=== PATIENT | female | born 1940 | race Caucasian/White ===

== ENCOUNTER 2019-05-30 18:45 | Inpatient (IN) | payer MEDICARE, OTHER ==
[~2019-05-30] VITALS: Ht 167.6 cm; Wt 78.7 kg
--- NOTE | 2019-05-30 20:05 | NUR ---
Dr. Martinez at bedside for MSE.
[2019-05-30] MEDS ORDERED: IV NORMAL SALINE 1000 ML BAG IV ONE (20:15)
--- NOTE | 2019-05-30 20:23 | NUR ---
Xray at bedside.
[2019-05-30 20:24] LABS: BASOPHILS % (AUTO) 0.2 % (0.0-2.0); HEMATOCRIT 37.5 % (31.2-41.9); HEMOGLOBIN 12.2 g/dL (10.9-14.3); LYMPHOCYTES # (AUTO) 0.5 K/uL (20.0-40.0); LYMPHOCYTES % (AUTO) 4.2 % (20.5-51.5); MEAN CORPUSCULAR HEMOGLOBIN 28.6 uug (24.7-32.8); MEAN CORPUSCULAR HGB CONC 33 g/dL (32.3-35.6); MEAN CORPUSCULAR VOLUME 88.1 fL (75.5-95.3); MONOCYTES # (AUTO) 0.6 K/uL (2.0-10.0); MONOCYTES % (AUTO) 5.3 % (0.0-11.0); NEUTROPHILS # (AUTO) 11.1 K/uL (1.8-8.9); NEUTROPHILS % (AUTO) 90.3 % (38.5-71.5); PLATELET COUNT (AUTO) 189 K/uL (179-408); RED BLOOD CELL COUNT(AUTO) 4.26 MIL/uL (3.63-4.92); WHITE BLOOD COUNT (AUTO) 12.3 K/uL (3.8-11.8)
[2019-05-30 20:33] LABS: POTASSIUM 3.6 mmol/L (3.5-5.1)
--- NOTE | 2019-05-30 20:35 | NUR ---
Inserted malhotra catheter, pt tolerated procedure well, urine sample sent to lab.
[2019-05-30 20:38] LABS: BILIRUBIN,DIRECT 0.2 mg/dL (0.0-0.2); BILIRUBIN,TOTAL 0.4 mg/dL (0.2-1.0); TOTAL PROTEIN, SERUM 7.1 g/dL (6.4-8.2)
[2019-05-30 20:48] LABS: *BILIRUBIN,URIN NEGATIVE (NEGATIVE); *BLOOD, URINE 2+ (NEGATIVE); *CLARITY,URINE CLOUDY (CLEAR); *COLOR,URINE YELLOW (YELLOW); *KETONES,URINE NEGATIVE (NEGATIVE); *UROBILINOGEN,URINE 0.2 E.U./dl (NORMAL); LEUKOCYTE ESTERASE ,URINE NEGATIVE (NEGATIVE); NITRITE, URINE NEGATIVE (NEGATIVE); UGLUCOSE NEGATIVE (NEGATIVE)
[2019-05-30 20:51] LABS: BACTERIA,URINE 3+ /HPF (NONE SEEN); WBC,URINE 0-3 /HPF (0-3)
[2019-05-30] MEDS ORDERED: ACETAMINOPHEN 650 MG SUPP.RECT RC ONE ×2 (20:57→21:00)
[2019-05-30] MEDS ORDERED: CEFTRIAXONE 1 G in IV DEXTROSE 5% 50 ML IV ONE (21:15)
[2019-05-30] MEDS ORDERED: CEFTRIAXONE 1 G VIAL ONE (21:16)
--- NOTE | 2019-05-30 21:20 | NUR ---
Called [facility] to page Dr. Zeng.
--- NOTE | 2019-05-30 21:24 | NUR ---
Dr. Martinez on panel call with Dr. Zeng. Patient accepted for admission to [facility], diagnosis: CHF, UTI, and fever.
--- NOTE | 2019-05-30 21:27 | NUR ---
called Cira Patricio, santino w/ Henrietta Banks RN, and confirmed pt's code status - DNR. LISA is in the pt's transfer care chart.
[2019-05-30] MEDS ORDERED: IV NS 1000 ML 1,000 ML IV PRN (21:35)
--- NOTE | 2019-05-30 21:37 | NUR ---
Spoke with Pt's daughter, Shelly, , confirmed patient's DNR/DNI status.
--- NOTE | 2019-05-30 21:42 | NUR ---
Report given to [facility] Tele.
[2019-05-30] MEDS ORDERED: ACETAMINOPHEN 325 MG TABLET PO PRN (21:45)
[2019-05-30] MEDS ORDERED: INSULIN REGULAR, HUMAN 300 UNITS/3 ML VIAL SQ PRN (21:45)
[2019-05-30] MEDS ORDERED: HYDROCODONE/APAP 5-325MG TABLET PO PRN (21:45)
[2019-05-30] MEDS ORDERED: DEXTROSE 50% 50 ML DISP.SYRIN IV PRN (21:45)
[2019-05-30] MEDS ORDERED: MAGNESIUM HYDROXIDE 30 ML LIQUID UDC PO PRN (21:45)
[2019-05-30] MEDS ORDERED: Z GUARD REMEDY PASTE 57 GM TUBE TOP PRN (21:45)
[2019-05-30] MEDS ORDERED: ONDANSETRON 4 MG/2 ML VIAL IV PRN (21:45)
[2019-05-30] MEDS ORDERED: ATORVASTATIN 40 MG TABLET PO SCH (21:58)
[2019-05-30] MEDS ORDERED: MAGNESIUM HYDROXIDE 30 ML LIQUID UDC PO SCH (22:02)
[2019-05-30] MEDS ORDERED: PIPERACILLIN/TAZOBACTAM/D5W 50 ML IV ONE (22:30)
[2019-05-30 22:45] VITALS: BP 134/41
[2019-05-30] MEDS: BLOOD SUGAR DIAGNOSTIC 1 EACH STRIP VI SCH (23:01)
[2019-05-30] MEDS ORDERED: PIPERACILLIN SODIUM/TAZO 3.375 GM VIAL ONE (23:04)
[2019-05-30] MEDS: OLANZAPINE 2.5 MG TABLET PO SCH (23:20)
[2019-05-30] MEDS: LOSARTAN POTASSIUM 50 MG TABLET PO SCH (23:20)
[2019-05-30] MEDS: ASPIRIN 81 MG TAB.CHEW PO SCH (23:24)
[2019-05-31] MEDS ORDERED: PIPERACILLIN SODIUM/TAZOBACTAM 3.375 G in IV DEXTROSE 5% 50 ML IV SCH ×2
--- NOTE | 2019-05-31 | NUR ---
Patient arrived on the floor at 2205, accompanied by ER nurse. In sleepy/drowsy state, able to make mumbling noises as responses, but unable to participate in a full conversation. Responds to verbal, tactile and painful stimuli. Pt transferred from [facility] to bed, assisted by 2 NET PROGRAMMER ANALYST's. Placed on tele, Normal sinus rhythm at this time, 60-77 HR. Still slightly warm to touch, with fever as documented. Cooling measures provided. Rest of VS within normal limits. Bedside swallow eval done, patient able to tolerate table spoons of apple sauce. Opens eyes and swallows without coughing. Skin check done, multiple skin issues noted including: (1) multiple discoloration, bruises and closed ecchymosis on bilateral upper extremities; (2) Redness with some breaks in skin, congruent to moisture associated skin damage on buttocks and perineal area; (3) Redness on entire R lower leg; (4) Redness on the bony prominences of both R and L foot. Good perineal care provided. Patient with 2 BM (1 in ER and at this time). Placed on comfortable position with R side of body offloaded. Bilateral heels and foot also offloaded. Held off on the DVT pumps due to redness on R lower extremity. All patient's belongings accounted for, NET PROGRAMMER ANALYST and RN signed, patient unable to sign. Carried out all admission orders, clarified IV fluids secondary to patient's CHF MD KUSH stock'ed initial order. IV ATB continued, started on L FA currently running at 50cc/hr. All oral medications crushed and mixed with apple sauce, tolerated well. Head kept elevated. Aspiration precautions maintained. BS checked: 163, due insulin of 3 units given subcutaneously. Cooling measures still kept in place. Bed locked in place. Side rails up x 3. Bed alarm on. Pt sleeping now. Needs attended. Will continue to monitor patient.
[2019-05-31 01:12] VITALS: BP 144/41
--- NOTE | 2019-05-31 01:51 | NUR ---
TEMP STILL ELEVATED AT 101.9. TYLENOL 650 MG GIVEN PO. TOELRATED WELL. ICE PACKS PLACED UNDERARMS, AND COLD TOWEL PLACED ON FOREHEAD. WILL CONTINUE COOLING MEASURES. PT IS MORE AWAKE NOW, BUT NOTED WITH RESTLESSNESS.
--- NOTE | 2019-05-31 03:30 | NUR ---
Dr Wilkes contacted regarding patient's continued fever, and now increased restlessness. Unable to console or redirect. Received new order for 1x Ativan 1mg PO received, will administer. Will continue to monitor.
[2019-05-31] MEDS ORDERED: LORAZEPAM 1 MG TABLET PO ONE (03:45)
[2019-05-31 04:00] VITALS: BP 127/33
[2019-05-31] MEDS ORDERED: PIPERACILLIN/TAZOBACTAM/D5W 50 ML IV ONE (06:00)
[2019-05-31 06:18] LABS: BASOPHILS % (AUTO) 0.2 % (0.0-2.0); HEMOGLOBIN 10.5 g/dL (10.9-14.3); LYMPHOCYTES # (AUTO) 1.2 K/uL (20.0-40.0); LYMPHOCYTES % (AUTO) 9.4 % (20.5-51.5); MEAN CORPUSCULAR HEMOGLOBIN 28.6 uug (24.7-32.8); MEAN CORPUSCULAR HGB CONC 33 g/dL (32.3-35.6); MEAN CORPUSCULAR VOLUME 87.4 fL (75.5-95.3); MONOCYTES # (AUTO) 0.6 K/uL (2.0-10.0); MONOCYTES % (AUTO) 4.8 % (0.0-11.0); NEUTROPHILS # (AUTO) 11.2 K/uL (1.8-8.9); NEUTROPHILS % (AUTO) 85.6 % (38.5-71.5); PLATELET COUNT (AUTO) 183 K/uL (179-408); RED BLOOD CELL COUNT(AUTO) 3.66 MIL/uL (3.63-4.92)
[2019-05-31 06:31] LABS: CREATININE 1.1 mg/dL (0.6-1.3); MAGNESIUM 1.6 mg/dL (1.8-2.4); PHOSPHOROUS 3.2 mg/dL (2.5-4.9); POTASSIUM 3.4 mmol/L (3.5-5.1)
--- NOTE | 2019-05-31 06:34 | NUR ---
Patient slept after Ativan 1 mg PO given. Fever improved to 99.0 after all interventions provided. Pt still kept on data compiler blankets. Resting comfortably at this time. Fall and safety precautions maintained. SInus Brandyn/Rhythm on monitor at is itme: 55-60. Will continue to monitor and endorse accordingly.
[2019-05-31] MEDS: BLOOD SUGAR DIAGNOSTIC 1 EACH STRIP VI SCH ×4 (06:37→21:45)
[2019-05-31] MEDS: LEVOTHYROXINE SODIUM 125 MCG TABLET PO SCH (06:37)
[2019-05-31] MEDS: DOCUSATE SODIUM 100 MG CAPSULE PO SCH ×2 (09:05→18:07)
[2019-05-31] MEDS: ACIDOPHILUS/BULGARICUS CHEW TAB PO SCH ×2 (09:06→17:54)
[2019-05-31] MEDS: CYANOCOBALAMIN 1,000 MCG TABLET PO SCH (09:06)
[2019-05-31] MEDS: THIAMINE HCL 100 MG TABLET PO SCH (09:06)
[2019-05-31] MEDS: MULTIVITAMINS,THERAPEUTIC TABLET PO SCH (09:07)
[2019-05-31] MEDS: ASPIRIN 81 MG TAB.CHEW PO SCH (09:07)
[2019-05-31] MEDS: AMLODIPINE 5 MG TABLET PO SCH ×2 (09:10→18:06)
[2019-05-31] MEDS: LOSARTAN POTASSIUM 50 MG TABLET PO SCH (09:11)
[2019-05-31] MEDS: INSULIN REGULAR, HUMAN 300 UNIT/3 ML VIAL SQ PRN (09:17)
[2019-05-31] MEDS ORDERED: POTASSIUM CHLORIDE 20 MEQ TAB.PRT.SR PO ONE (10:15)
[2019-05-31] MEDS: MAGNESIUM SULFATE/D5W 100 ML IV SCH ×2 (10:55→13:36)
--- NOTE | 2019-05-31 10:59 | NUR ---
Clinical Pharmacy Note: Vancomycin Dosing per Pharmacy Subjective: Vancomycin IV to start on this78 yo female patient for suspected infection (UTI) Objective: BUN 33/Scr 1.1 (increasing) WBC 13 Temperature 99 ht 167 cm wt 83 kg Assessment/Plan: Since srcr is increasing, will give vanco 1250 mg IVPB x1 today at noon. Plan to check vanco random level tomorrow with am labs. Pharmacy shall re-dose if needed. Will monitor renal function and if appropriate with start routine dosing. Will follow daily.
[2019-05-31 11:30] VITALS: BP 116/55
[2019-05-31] MEDS ORDERED: VANCOMYCIN IV 1,250 MG in IV DEXTROSE 5% 250 ML IV ONE (12:00)
--- NOTE | 2019-05-31 12:22 | NUR ---
WOUND CARE CONSULT: PT PRESENTS WITH REDNESS AND EDEMA TO RT LOWER LEG AND FOOT WELL RASH TO BUTTOCKS AND PERINEUM WITH INCONTINENCE ASSOCIATED SKIN DAMAGE, PRESENT ON ADMISSION. PT NOTED TO HAVE CONTRACTED LOWER EXTREMITIES MAKING OFFLOADING DIFFICULT. RECOMMENDATIONS MADE FOR SKIN PROTECTION AND SKIN CARE. DISCUSSED WITH NURSING STAFF. WILL SEE PRN. CURRENT [facility] SCORE IS 11. FIRST STEP LOW AIRLOSS MATTRESS ON ORDER. Addendum: 05/31/19 at 1224 by CATY EASTMAN RN Amended: Links added.
[2019-05-31 15:36] VITALS: BP 144/36
[2019-05-31] MEDS: PIPERACILLIN SODIUM/TAZOBACTAM 3.375 G in IV DEXTROSE 5% 50 ML IV SCH ×2 (16:48→21:46)
[2019-05-31] MEDS: CLOTRIMAZOLE 1% CREAM 30 GM TUBE TOP SCH (17:00)
[2019-05-31] MEDS: ACETAMINOPHEN 325 MG TABLET PO PRN (18:07)
[2019-05-31 19:35] VITALS: BP 124/32
[2019-05-31 19:56] VITALS: BP 99/56
--- NOTE | 2019-05-31 19:57 | NUR ---
Patient calm and comfortable with no signs of distress; patient at baseline mental status. Patient had fever and given Tylenol for management; patient medication compliant. Report given to oncoming nurse.
[2019-05-31] MEDS: OLANZAPINE 2.5 MG TABLET PO SCH (21:45)
[2019-06-01 00:06] VITALS: BP 130/47
[2019-06-01 05:12] VITALS: BP 144/43
[2019-06-01] MEDS: PIPERACILLIN SODIUM/TAZOBACTAM 3.375 G in IV DEXTROSE 5% 50 ML IV SCH ×3 (06:00→21:05)
--- NOTE | 2019-06-01 06:00 | NUR ---
Patient slept better tonight than night prior. Able to sleep at least 8 hours during entire shift. No changes in mental status throughout shift, remained disoriented with some episodes of crying and restlessness, but after administering routine Zyprexa and [place] 5/325 mg for pain. Pt also pulled out her Left AC IV site. Pt slowly calmed down, and slept well. Also febrile during beginning of shift with temp of 100.5, after cooling measures, temp went down to 98.3 at midnight, and now down to 97.5. All due antibiotics given via IV on the right wrist, latest dose still running on R wrist. No signs of adverse reactions noted throughout shift. Bony areas offloaded. Turned every 2 hours. BM x 4, with urine output normal amount. Good perineal care provided. Sinus Brandyn 46-55 to Sinus Rhythm 60-65 throughout shift. Will continue to monitor and endorse accordingly.
[2019-06-01] MEDS: LEVOTHYROXINE SODIUM 125 MCG TABLET PO SCH (06:01)
[2019-06-01 06:26] LABS: BASOPHILS % (AUTO) 0.2 % (0.0-2.0); EOSINOPHILS # (AUTO) 0.1 K/uL (0.0-0.7); EOSINOPHILS % (AUTO) 1.1 % (0.0-7.0); HEMATOCRIT 32.6 % (31.2-41.9); HEMOGLOBIN 10.9 g/dL (10.9-14.3); LYMPHOCYTES # (AUTO) 1.1 K/uL (20.0-40.0); LYMPHOCYTES % (AUTO) 10.8 % (20.5-51.5); MEAN CORPUSCULAR HEMOGLOBIN 29.3 uug (24.7-32.8); MEAN CORPUSCULAR HGB CONC 34 g/dL (32.3-35.6); MEAN CORPUSCULAR VOLUME 87.2 fL (75.5-95.3); MONOCYTES # (AUTO) 0.7 K/uL (2.0-10.0); MONOCYTES % (AUTO) 6.4 % (0.0-11.0); NEUTROPHILS # (AUTO) 8.4 K/uL (1.8-8.9); NEUTROPHILS % (AUTO) 81.5 % (38.5-71.5); PLATELET COUNT (AUTO) 178 K/uL (179-408); RED BLOOD CELL COUNT(AUTO) 3.74 MIL/uL (3.63-4.92); WHITE BLOOD COUNT (AUTO) 10.3 K/uL (3.8-11.8)
[2019-06-01 06:30] LABS: CREATININE 1.3 mg/dL (0.6-1.3); MAGNESIUM 2.2 mg/dL (1.8-2.4); PHOSPHOROUS 2.9 mg/dL (2.5-4.9); POTASSIUM 4.1 mmol/L (3.5-5.1); VANCOMYCIN,RANDOM 8.8 ug/mL (18.0-26.0)
[2019-06-01] MEDS: BLOOD SUGAR DIAGNOSTIC 1 EACH STRIP VI SCH ×4 (06:32→21:41)
[2019-06-01] MEDS: CYANOCOBALAMIN 1,000 MCG TABLET PO SCH (08:31)
[2019-06-01] MEDS: ACIDOPHILUS/BULGARICUS CHEW TAB PO SCH ×2 (08:31→16:43)
[2019-06-01] MEDS: MULTIVITAMINS,THERAPEUTIC TABLET PO SCH (08:32)
[2019-06-01] MEDS: THIAMINE HCL 100 MG TABLET PO SCH (08:32)
[2019-06-01] MEDS: DOCUSATE SODIUM 100 MG CAPSULE PO SCH ×2 (08:32→16:43)
[2019-06-01] MEDS: ASPIRIN 81 MG TAB.CHEW PO SCH (08:32)
[2019-06-01] MEDS: CLOTRIMAZOLE 1% CREAM 30 GM TUBE TOP SCH ×2 (08:33→16:43)
--- NOTE | 2019-06-01 08:34 | NUR ---
Clinical Pharmacy Note: Vancomycin Dosing per Pharmacy Subjective: Vancomycin IV to continue on this 78 yo female patient for RLE cellulitis Objective: BUN 32/Scr 1.3 (increasing) WBC 10.3 Temperature 98.3 ht 167 cm wt 83 kg Assessment/Plan: Since srcr is increasing, will continue to dose per level for now. Will give vanco 1250 mg IVPB x1 today at 0930. Plan to check vanco random level tomorrow with am labs. Pharmacy shall re-dose if needed. Will monitor renal function and if appropriate to start routine dosing. Will follow daily.
[2019-06-01] MEDS: INSULIN REGULAR, HUMAN 300 UNIT/3 ML VIAL SQ PRN ×2 (08:45→12:43)
[2019-06-01] MEDS ORDERED: VANCOMYCIN IV 1,250 MG in IV DEXTROSE 5% 250 ML IV ONE (09:30)
[2019-06-01 11:05] VITALS: BP 147/34
[2019-06-01] MEDS: QUETIAPINE FUMARATE 25 MG TABLET PO PRN ×2 (14:24→21:05)
[2019-06-01 16:25] VITALS: BP 140/50
[2019-06-01] MEDS: OLANZAPINE 2.5 MG TABLET PO SCH (21:49)
[2019-06-01 22:06] VITALS: BP 167/44
[2019-06-02] VITALS (8 sets, daily range): BP systolic 114–196; BP diastolic 42–93
--- NOTE | 2019-06-02 00:30 | NUR ---
Patient noted w/ elevated BP 196/52 HR-56. Patient noted confused w/ episodes of crying and combative during provision of care. N.o from Dr. Zeng for Hydralazine 10mg IV Q4 PRN for SBP>150
[2019-06-02] MEDS: hydrALAZINE HCL 20 MG/1 ML VIAL IV PRN ×2 (00:31→20:40)
--- NOTE | 2019-06-02 01:40 | NUR ---
BP rechecked 157/50 HR- 51. Patient sleeping at this time
[2019-06-02] MEDS: PIPERACILLIN SODIUM/TAZOBACTAM 3.375 G in IV DEXTROSE 5% 50 ML IV SCH (05:24)
[2019-06-02] MEDS: LEVOTHYROXINE SODIUM 125 MCG TABLET PO SCH (06:17)
[2019-06-02 06:38] LABS: BASOPHILS % (AUTO) 0.3 % (0.0-2.0); EOSINOPHILS # (AUTO) 0.3 K/uL (0.0-0.7); EOSINOPHILS % (AUTO) 3.9 % (0.0-7.0); HEMATOCRIT 33.6 % (31.2-41.9); LYMPHOCYTES # (AUTO) 1.2 K/uL (20.0-40.0); LYMPHOCYTES % (AUTO) 13.7 % (20.5-51.5); MEAN CORPUSCULAR HEMOGLOBIN 28.5 uug (24.7-32.8); MEAN CORPUSCULAR HGB CONC 33 g/dL (32.3-35.6); MEAN CORPUSCULAR VOLUME 87.4 fL (75.5-95.3); MONOCYTES # (AUTO) 0.8 K/uL (2.0-10.0); MONOCYTES % (AUTO) 8.8 % (0.0-11.0); NEUTROPHILS # (AUTO) 6.3 K/uL (1.8-8.9); NEUTROPHILS % (AUTO) 73.3 % (38.5-71.5); PLATELET COUNT (AUTO) 183 K/uL (179-408); RED BLOOD CELL COUNT(AUTO) 3.85 MIL/uL (3.63-4.92); WHITE BLOOD COUNT (AUTO) 8.6 K/uL (3.8-11.8)
[2019-06-02] MEDS: BLOOD SUGAR DIAGNOSTIC 1 EACH STRIP VI SCH ×4 (06:51→20:35)
--- NOTE | 2019-06-02 06:54 | NUR ---
Patient slept well. No SOB noted. Sinus felicitas on Tele monitor. IV on R wrist intact and patent w/ IV ATB infusing. Patient w/ episode of combativeness and crying. T/R Q2. All needs attended. Will endorse accordingly
[2019-06-02 06:57] LABS: CARBON DIOXIDE 29 mmol/L (21-32); CHLORIDE 108 mmol/L (98-107); GLUCOSE 111 mg/dL (74-106); POTASSIUM 3.8 mmol/L (3.5-5.1); UREA NITROGEN, BLOOD 24 mg/dL (7-18)
[2019-06-02 06:58] LABS: MAGNESIUM 1.9 mg/dL (1.8-2.4); PHOSPHOROUS 2.6 mg/dL (2.5-4.9); VANCOMYCIN,RANDOM 10.2 ug/mL (18.0-26.0)
--- NOTE | 2019-06-02 07:30 | NUR ---
Received patient in bed alert and confused. IV intact and patent. No SOB noted at this time. kept clean and dry at all times. will continue to monitor.
[2019-06-02] MEDS: CYANOCOBALAMIN 1,000 MCG TABLET PO SCH (08:29)
[2019-06-02] MEDS: DOCUSATE SODIUM 100 MG CAPSULE PO SCH ×2 (08:29→17:03)
[2019-06-02] MEDS: ASPIRIN 81 MG TAB.CHEW PO SCH (08:29)
[2019-06-02] MEDS: ACIDOPHILUS/BULGARICUS CHEW TAB PO SCH ×2 (08:29→17:03)
[2019-06-02] MEDS: CLOTRIMAZOLE 1% CREAM 30 GM TUBE TOP SCH ×2 (08:29→17:04)
[2019-06-02] MEDS: MULTIVITAMINS,THERAPEUTIC TABLET PO SCH (08:29)
[2019-06-02] MEDS: THIAMINE HCL 100 MG TABLET PO SCH (08:29)
[2019-06-02] MEDS ORDERED: VANCOMYCIN IV 1,250 MG in IV DEXTROSE 5% 250 ML IV ONE (09:00)
[2019-06-02] MEDS: QUETIAPINE FUMARATE 25 MG TABLET PO PRN ×2 (09:42→20:35)
[2019-06-02] MEDS: INSULIN REGULAR, HUMAN 300 UNIT/3 ML VIAL SQ PRN (12:12)
[2019-06-02] MEDS: CEFAZOLIN 1 G in IV DEXTROSE 5% 50 ML IV SCH ×2 (13:25→22:00)
--- NOTE | 2019-06-02 14:26 | NUR ---
Attempted to DO LEV DOPPLER yesterday and today. pt was combative and refused
[2019-06-02] MEDS: AMLODIPINE 5 MG TABLET PO SCH (15:44)
[2019-06-02] MEDS: OLANZAPINE 2.5 MG TABLET PO SCH ×2 (17:20→20:35)
--- NOTE | 2019-06-02 19:20 | NUR ---
patient in bed and confused. IV intact and patent. No SOB noted at this time and no c/o pain at this time. kept clean and dry at all times. bed in low position and side rails up x2. provide safety and comfort at all times. will continue to monitor.
[2019-06-03] MEDS: ACETAMINOPHEN 325 MG TABLET PO PRN ×2 (00:01→20:01)
[2019-06-03 00:17] VITALS: BP 148/44
[2019-06-03 04:00] VITALS: BP 190/50
[2019-06-03] MEDS: CEFAZOLIN 1 G in IV DEXTROSE 5% 50 ML IV SCH ×3 (05:15→21:12)
[2019-06-03] MEDS: hydrALAZINE HCL 20 MG/1 ML VIAL IV PRN ×2 (05:30→16:11)
[2019-06-03] MEDS: LEVOTHYROXINE SODIUM 125 MCG TABLET PO SCH (06:43)
[2019-06-03] MEDS: BLOOD SUGAR DIAGNOSTIC 1 EACH STRIP VI SCH ×4 (06:44→20:01)
--- NOTE | 2019-06-03 06:45 | NUR ---
Patient slept intermittently. No SOB noted. Sinus felicitas on Tele monitor. Patient w/ episode of combativeness and crying. T/R Q2. All needs attended. Will endorse accordingly
[2019-06-03] MEDS ORDERED: VANCOMYCIN IV 1,000 MG in IV DEXTROSE 5% 250 ML IV SCH (07:00)
[2019-06-03] MEDS: ASPIRIN 81 MG TAB.CHEW PO SCH (09:04)
[2019-06-03] MEDS: ACIDOPHILUS/BULGARICUS CHEW TAB PO SCH ×2 (09:04→16:20)
[2019-06-03] MEDS: AMLODIPINE 5 MG TABLET PO SCH (09:04)
[2019-06-03] MEDS: CYANOCOBALAMIN 1,000 MCG TABLET PO SCH (09:04)
[2019-06-03] MEDS: THIAMINE HCL 100 MG TABLET PO SCH (09:04)
[2019-06-03] MEDS: DOCUSATE SODIUM 100 MG CAPSULE PO SCH ×2 (09:05→16:20)
[2019-06-03] MEDS: MULTIVITAMINS,THERAPEUTIC TABLET PO SCH (09:05)
[2019-06-03] MEDS: OLANZAPINE 2.5 MG TABLET PO SCH ×2 (09:05→20:01)
[2019-06-03] MEDS: CLOTRIMAZOLE 1% CREAM 30 GM TUBE TOP SCH ×2 (09:10→16:21)
[2019-06-03] MEDS: QUETIAPINE FUMARATE 25 MG TABLET PO PRN ×2 (09:11→12:57)
[2019-06-03 11:00] VITALS: BP 140/69
[2019-06-03] MEDS ORDERED: VANCOMYCIN IV 1,250 MG in IV DEXTROSE 5% 250 ML IV ONE (11:00)
[2019-06-03] MEDS: LOSARTAN POTASSIUM 50 MG TABLET PO SCH ×2 (12:28→20:42)
[2019-06-03] MEDS: INSULIN REGULAR, HUMAN 300 UNIT/3 ML VIAL SQ PRN (12:40)
--- NOTE | 2019-06-03 15:20 | NUR ---
Clinical Pharmacy Note: Vancomycin Dosing per Pharmacy Subjective: Vancomycin IV to re-start on this 78 yo female patient for RLE cellulitis Objective: BUN 24/Scr 1.0 (06/01) WBC 8.6 (06/01) Temperature 98.3 Random today at 0900: 7.5 ht 167 cm wt 83 kg Assessment/Plan: Vanco was d/c'd yesterday however MD re-started today. Therefore, will continue dosing per level as renal function previously was unstable. Per today's random, dosed another vanco 1250mg x 1 today at 1100. Next random ordered with am labs tomorrow. Will check and re-dose as needed. Will follow
[2019-06-03 15:41] VITALS: BP 159/44
--- NOTE | 2019-06-03 18:26 | NUR ---
Patient AAOx1 to self; confused. IV on R FA intact and patent. In no acute distress or aggressive behavior noted at this time. Afebrile throughout shift. Safety measures implemented and effective. Comfort provided at all times. Will endorse care accordingly.
--- NOTE | 2019-06-03 19:00 | NUR ---
RECEIVED PATIENT ALERT BUT WITH CONFUSION, PATIENT HAS ANXIETY YELLS AND SCREAM, NOT EASILY CAN BE REDIRECTED. PATIENT REPORTED THAT PATIENT IS COMBATIVE AND HOSTILE TO STAFF. PATIENT HAS CONFUSION MB YELLING SCREAMING FOR NO APPARENT REASON. PATIENT WAS PUT ON 1;1 SITTER RISK FOR INJURY TO SELF AND TO OTHERS. CONT TO MONITOR.
[2019-06-03 20:42] VITALS: BP 150/64
--- NOTE | 2019-06-03 21:00 | NUR ---
PATIENT WAS DISCHARGE FROM TELE UNIT, AND TRANSFER TO GPS DUE DANGER TO SELF AND OTHERS, YELLING AND SCREAMING DUE TO MENTAL HEALTH CONDITION.
[2019-06-06] MEDS ORDERED: ERGOCALCIFEROL 50,000 UNIT CAPSULE PO SCH (09:00)
== END 2019-06-03 21:00 | DRG 871 ==
LOC: ER 18:48 → TELE3 21:45
PROVIDERS: ADMIT Internal Medicine; ATTEND Internal Medicine
DX: A41.9 Sepsis, unspecified organism (principal); G93.41 Metabolic encephalopathy; I21.A1 Myocardial infarction type 2; N39.0 Urinary tract infection, site not specified; I31.3 Pericardial effusion (noninflammatory); L03.115 Cellulitis of right lower limb; I13.0 Hypertensive heart and chronic kidney disease with heart failure and stage 1 through stage 4 chronic kidney disease, or unspecified chronic kidney disease; J98.11 Atelectasis; I11.0 Hypertensive heart disease with heart failure; I50.9 Heart failure, unspecified; E03.9 Hypothyroidism, unspecified; E83.42 Hypomagnesemia; E11.40 Type 2 diabetes mellitus with diabetic neuropathy, unspecified; E78.5 Hyperlipidemia, unspecified; Z66 Do not resuscitate; N18.9 Chronic kidney disease, unspecified; E11.22 Type 2 diabetes mellitus with diabetic chronic kidney disease; Z79.84 Long term (current) use of oral hypoglycemic drugs; Z79.899 Other long term (current) drug therapy; R65.20 Severe sepsis without septic shock; Z87.442 Personal history of urinary calculi; L30.9 Dermatitis, unspecified; E87.6 Hypokalemia; F03.90 Unspecified dementia, unspecified severity, without behavioral disturbance, psychotic disturbance, mood disturbance, and anxiety; Z79.890 Hormone replacement therapy; Z87.440 Personal history of urinary (tract) infections; I87.2 Venous insufficiency (chronic) (peripheral); F25.9 Schizoaffective disorder, unspecified
CPT/HCPCS: 36415; 70030-TC; 71045; 83690; 83735; 84100; 85025; 85730; 87077; 87086; 87400; 93005; 93307; A4663; C1758; G0378; J0360; J0690; J0696; J1815; J2543; J3475; J7030; J7050; J7060

== ENCOUNTER 2019-06-03 21:27 | Inpatient (IN) | payer MEDICARE, OTHER ==
[~2019-06-03] VITALS: Ht 167.6 cm; Wt 78.5 kg
[2019-06-03 20:00] VITALS: BP 152/67
--- NOTE | 2019-06-03 21:00 | NUR ---
PATIENT ADMITTED ON THE [facility] OVERFLOW UNDER THE CARE OF ARNULFO RIOS. PATIENT ALERT BUT WITH CONFUSION, PATIENT RESISTIVE WITH CARE, AND BECOME HOSTILE DURING CARE. PATIENT ON 1;1 SITTER FOR SAFETY.
[2019-06-03] MEDS ORDERED: LORAZEPAM 1 MG TABLET PO PRN (22:45)
[2019-06-03] MEDS ORDERED: MAG HYDROX/AL HYDROX/SIMETH 30 ML LIQUID UDC PO PRN (22:45)
[2019-06-03] MEDS ORDERED: DEXTROSE 50% 50 ML DISP.SYRIN IV PRN (22:45)
[2019-06-03] MEDS ORDERED: MAGNESIUM HYDROXIDE 30 ML LIQUID UDC PO PRN (22:45)
[2019-06-03] MEDS ORDERED: CEFAZOLIN 1 G VIAL IV SCH (22:45)
[2019-06-03] MEDS ORDERED: INSULIN REGULAR, HUMAN 300 UNIT/3 ML VIAL SQ PRN (22:45)
[2019-06-03] MEDS ORDERED: ACETAMINOPHEN 325 MG TABLET PO PRN ×2 (22:45)
[2019-06-03] MEDS ORDERED: TEMAZEPAM 7.5 MG CAPSULE PO PRN (22:45)
[2019-06-03] MEDS: CEFAZOLIN 1 G in IV DEXTROSE 5% 50 ML IV SCH (23:41)
--- NOTE | 2019-06-03 23:44 | NUR ---
ANCEF IV NOT GIVEN, DUE TO PATIENT RECEIVED ANCEF IV TWO HOURS AGO, WHEN PATIENT IN MEDICAL SURGICAL FLOOR.
[2019-06-03] MEDS ORDERED: VANCOMYCIN IV 1,250 MG in IV DEXTROSE 5% 250 ML IV ONE (23:45)
--- NOTE | 2019-06-04 02:30 | NUR ---
CALLED [facility] AND INVESTIGATE REGARDING IF PATIENT UP TO DATE OF HER VACCINE. STAFF SAID THAT PATIENT RECEIVED PNA VACCINE ON 02/04/19, AND FLU VACCINE ON 02/11/19.
[2019-06-04 04:00] VITALS: BP 156/81
--- NOTE | 2019-06-04 04:35 | NUR ---
PATIENT HAS MULTIPLE PASTY SOFT BM, GABRIEL SOLE LEATHER CUTTING MACHINE OPERATOR WAS NOTIFY WITH ORDER.
[2019-06-04] MEDS: CEFAZOLIN 1 G in IV DEXTROSE 5% 50 ML IV SCH ×3 (05:02→21:20)
[2019-06-04] MEDS: BLOOD SUGAR DIAGNOSTIC 1 EACH STRIP VI SCH ×4 (06:31→20:46)
--- NOTE | 2019-06-04 06:47 | NUR ---
PATIENT ALERT BUT WITH CONFUSION, SLEPT TOTAL 3 HRS ONLY, PATIENT CONTINUE ON 1;1 SITTER FOR SAFETY. PATIENT RENDERED GOOD CHRISTOPHER CARE AFTER MULTIPLE TIME OF PASTY BOWEL MOVEMENT. PATIENT YELLS AND SCREAMS RESISTIVE WITH CARE, CONT TO REORIENT PATIENT CONT TO MONITOR.
[2019-06-04 07:32] LABS: CREATININE 0.9 mg/dL (0.6-1.3); POTASSIUM 3.8 mmol/L (3.5-5.1)
[2019-06-04] MEDS ORDERED: LOSARTAN POTASSIUM 50 MG TABLET PO SCH ×3 (09:00→21:00)
[2019-06-04] MEDS: DOCUSATE SODIUM 100 MG CAPSULE PO SCH ×2 (09:00→16:06)
[2019-06-04] MEDS ORDERED: CYANOCOBALAMIN 100 MCG TABLET PO SCH (09:00)
[2019-06-04] MEDS ORDERED: AMLODIPINE 5 MG TABLET PO SCH (09:00)
[2019-06-04] MEDS: THIAMINE HCL 100 MG TABLET PO SCH (09:58)
[2019-06-04] MEDS: MULTIVIT, IRON, MIN NO. 8, FA TABLET PO SCH (09:58)
[2019-06-04] MEDS: ASPIRIN EC 81 MG TABLET.DR PO SCH (09:58)
[2019-06-04] MEDS: LEVOTHYROXINE SODIUM 125 MCG TABLET PO SCH (09:58)
[2019-06-04] MEDS: CULTURELLE CAPSULE PO SCH ×2 (09:58→20:26)
[2019-06-04] MEDS: CLOTRIMAZOLE 1% CREAM 30 GM TUBE TP SCH ×2 (10:02→16:37)
[2019-06-04] MEDS: CYANOCOBALAMIN 1,000 MCG TABLET PO SCH (10:19)
--- NOTE | 2019-06-04 10:28 | NUR ---
Clinical Pharmacy Note: Vancomycin Dosing per Pharmacy Subjective: Vancomycin IV to re-start on this 78 yo female patient for RLE cellulitis Objective: BUN 19/Scr 0.9 WBC 8.6 (06/01) Temperature 98.4 ht 167 cm wt 83 kg Assessment/Plan: Patient had vanco 1250 mg IV on 06/02 at 1100 (see [id number]). Will continue vanco 1250mg IVPB q24h for predicted vanco through level of 16 mcg/ml sta steady state. 2nd dose today at 110. Will monitor renal function & adjust the dose if needed. Vanco trough level before 4th dose (not yet ordered). Will follow
[2019-06-04 10:57] LABS: BASOPHILS % (AUTO) 0.2 % (0.0-2.0); EOSINOPHILS # (AUTO) 0.3 K/uL (0.0-0.7); EOSINOPHILS % (AUTO) 3.8 % (0.0-7.0); HEMATOCRIT 36.2 % (31.2-41.9); HEMOGLOBIN 11.9 g/dL (10.9-14.3); LYMPHOCYTES # (AUTO) 1.6 K/uL (20.0-40.0); LYMPHOCYTES % (AUTO) 21.4 % (20.5-51.5); MEAN CORPUSCULAR HEMOGLOBIN 28.5 uug (24.7-32.8); MEAN CORPUSCULAR HGB CONC 33 g/dL (32.3-35.6); MEAN CORPUSCULAR VOLUME 86.8 fL (75.5-95.3); MONOCYTES # (AUTO) 0.8 K/uL (2.0-10.0); MONOCYTES % (AUTO) 10.5 % (0.0-11.0); NEUTROPHILS # (AUTO) 4.9 K/uL (1.8-8.9); NEUTROPHILS % (AUTO) 64.1 % (38.5-71.5); PLATELET COUNT (AUTO) 210 K/uL (179-408); RED BLOOD CELL COUNT(AUTO) 4.17 MIL/uL (3.63-4.92); WHITE BLOOD COUNT (AUTO) 7.7 K/uL (3.8-11.8)
[2019-06-04] MEDS ORDERED: VANCOMYCIN IV 1,250 MG in IV DEXTROSE 5% 250 ML IV SCH (11:00)
[2019-06-04 12:56] VITALS: BP 174/36
--- NOTE | 2019-06-04 12:59 | NUR ---
Checked vital signs HR 50 BP 174/36 Discussed with , he adjusted BP medication orders on amlodipine and losartan. Will continue to monitor and carry out plan of care.
[2019-06-04] MEDS ORDERED: LOSARTAN POTASSIUM 50 MG TABLET PO ONE (13:15)
[2019-06-04] MEDS: AMLODIPINE 5 MG TABLET PO SCH ×2 (14:31→20:27)
--- NOTE | 2019-06-04 14:51 | NUR ---
The patient's clinical inquiry was faxed to [facility] address: [id number] [place] [address], [place] [address] and spoke with Rachel who confirmed that the facility will be accepting the patient and will be assigned to room 218 bed B. Shelly [[facility]] is aware . Dr. Wright and Amelia FERMIN are aware of Shelly's concern over the 7 day bed hold that is up tomorrow.
[2019-06-04] MEDS ORDERED: QUETIAPINE FUMARATE 25 MG TABLET PO PRN (15:15)
--- NOTE | 2019-06-04 18:41 | NUR ---
Patient resting in bed, confused. Noncompliant with nursing care and medical treatment. made aware. Plan is to discharge back to [facility] tomorrow if no acute/major events over night. Continues on blood sugar checks. Stool pending results, patient had multiple bowel movements. Sitter 1:1 bedside for safety. Continues on IV antibiotics.
[2019-06-04 19:25] VITALS: BP 151/91
--- NOTE | 2019-06-04 19:45 | NUR ---
PATIENT ALERT WITH CONFUSION. WITH EPISODE OF RESISTIVE TO CARE, COMBATIVE TO CARE, CRIES WHEN GIVING NURSING CARE. PATIENT WAS KEPT CLEAN AND DRY, STILL HAVE SOFT BOWEL MOVEMENT. PATIENT DENIES PAIN AT THIS TIME. PATIENT HAS ALSO REFUSED PO MEDICATIONS, NEEDS LOTS OF ENCOURAGEMENT BEFORE TAKING HER MEDICATIONS. CONT ON 1;1 SITTER FOR SAFETY. CONT TO MONITOR.
[2019-06-04] MEDS: OLANZAPINE 2.5 MG TABLET PO SCH (20:27)
[2019-06-04] MEDS ORDERED: OLANZAPINE 2.5 MG TABLET PO SCH ×2 (21:00)
[2019-06-04] MEDS ORDERED: MAGNESIUM HYDROXIDE 30 ML LIQUID UDC PO SCH (21:00)
[2019-06-05 04:00] VITALS: BP 155/72
--- NOTE | 2019-06-05 05:12 | NUR ---
PATIENT SLEPT 5 HOURS. PATIENT STILL HAVE 6 LOSE BOWEL MOVEMENT, BM SENT ALREADY FOR C DIFF TEST, AWAITING FOR RESULTS. PATIENT RENDERED GOOD CHRISTOPHER CARE. PATIENT STILL HAVE EPISODE OF RESISTIVE TO CARE, AGITATION, YELLS AND SCREAMS. PATIENT UNABLE TO REDIRECT BEHAVIOR DUE TO MENTAL HEALTH CONDITION, CONT 1;1 SITTER FOR SAFETY. PATIENT STILL HAVE EPISODE OF PULLING OUT IV TUBING, CONT ON IV ATB DUE TO DX OF FEVER/NAUSEA VOMITING. CONT TO MONITOR.
[2019-06-05] MEDS: CEFAZOLIN 1 G in IV DEXTROSE 5% 50 ML IV SCH ×2 (06:22→13:29)
[2019-06-05] MEDS: BLOOD SUGAR DIAGNOSTIC 1 EACH STRIP VI SCH ×2 (07:21→11:50)
[2019-06-05 08:00] VITALS: BP 153/50
[2019-06-05] MEDS: DOCUSATE SODIUM 100 MG CAPSULE PO SCH (08:09)
[2019-06-05] MEDS: LEVOTHYROXINE SODIUM 125 MCG TABLET PO SCH (08:10)
[2019-06-05] MEDS: AMLODIPINE 5 MG TABLET PO SCH (08:10)
[2019-06-05] MEDS: MULTIVIT, IRON, MIN NO. 8, FA TABLET PO SCH (08:10)
[2019-06-05] MEDS: ASPIRIN EC 81 MG TABLET.DR PO SCH (08:11)
[2019-06-05] MEDS: CULTURELLE CAPSULE PO SCH (08:11)
[2019-06-05] MEDS: CYANOCOBALAMIN 1,000 MCG TABLET PO SCH (08:11)
[2019-06-05] MEDS: OLANZAPINE 2.5 MG TABLET PO SCH (08:11)
[2019-06-05] MEDS: THIAMINE HCL 100 MG TABLET PO SCH (08:11)
[2019-06-05] MEDS: CLOTRIMAZOLE 1% CREAM 30 GM TUBE TP SCH (08:12)
[2019-06-05] MEDS ORDERED: LOSARTAN POTASSIUM 50 MG TABLET PO SCH (09:00)
[2019-06-05 13:57] VITALS: BP 152/70
[2019-06-05] MEDS ORDERED: SPIRONOLACTONE 25 MG TABLET PO SCH (14:30)
--- NOTE | 2019-06-05 16:48 | NUR ---
dc orders received noted and carried out.dc instruction and education and rn [facility],pt going with iv heplock for iv antibiotic ,pt left the facility via ambulances in stable condition
== END 2019-06-05 17:00 | DRG 885 ==
LOC: GPSOV3 21:27
PROVIDERS: ADMIT Psychiatry & Neurology Psychiatry; ATTEND Nurse Practitioner Acute Care
DX: F29 Unspecified psychosis not due to a substance or known physiological condition (principal); G93.41 Metabolic encephalopathy; I21.A1 Myocardial infarction type 2; F03.91 Unspecified dementia, unspecified severity, with behavioral disturbance; L03.115 Cellulitis of right lower limb; N39.0 Urinary tract infection, site not specified; I31.3 Pericardial effusion (noninflammatory); F41.9 Anxiety disorder, unspecified; I10 Essential (primary) hypertension; R00.1 Bradycardia, unspecified; E11.9 Type 2 diabetes mellitus without complications; E03.9 Hypothyroidism, unspecified; E78.5 Hyperlipidemia, unspecified; Z79.890 Hormone replacement therapy; B96.89 Other specified bacterial agents as the cause of diseases classified elsewhere; F20.9 Schizophrenia, unspecified
CPT/HCPCS: 36415; 85025; J0690; J1815; J7060